=== PATIENT | male | born 1940 | race Caucasian/White ===

== ENCOUNTER 2024-06-28 18:58 | Emergency (ER) | payer MEDICARE, BC ==
[~2024-06-28] VITALS: Ht 160 cm; Wt 73.0 kg
[2024-06-28] MEDS ORDERED: CEPH-570 PO (19:53)
[2024-06-28] MEDS ORDERED: TDAP [DIPH/PERTUSSIS/TET] 0.5 ML VIAL IM ONE (20:03)
[2024-06-28] MEDS: TDAP [DIPH/PERTUSSIS/TET] 0.5 ML VIAL IM ONE (20:07)
[2024-06-28 20:08] VITALS: BP 135/68; TEMP 97.9; O2SAT 99
== END 2024-06-28 20:08 | disposition home or self-care (01) ==
LOC: ER 19:02
DX: S51.811A Laceration without foreign body of right forearm, initial encounter (principal); Z79.82 Long term (current) use of aspirin; I25.2 Old myocardial infarction; W26.8XXA Contact with other sharp object(s), not elsewhere classified, initial encounter; Y93.89 Activity, other specified; Y92.89 Other specified places as the place of occurrence of the external cause; Y99.8 Other external cause status
CPT/HCPCS: 90715